=== PATIENT | male | born 1975 | race Caucasian/White ===

== ENCOUNTER 2019-03-07 13:09 | Emergency (ER) | payer SELFPAY ==
[~2019-03-07] VITALS: Ht 185.4 cm; Wt 95.5 kg
[~2019-03-07 13:09] MED LIST: NALO4SPR NS
[2019-03-07 13:13] VITALS: BP 148/115; PULSE 111; RESP 20; Ht 185.4 cm; Wt 95.5 kg
== END 2019-03-07 13:30 | disposition left against medical advice (07) ==
LOC: E/R 13:09
DX: T40.1X1A Poisoning by heroin, accidental (unintentional), initial encounter (principal)
CPT/HCPCS: 99283